=== PATIENT | male | born 1995 | race Caucasian/White ===

== ENCOUNTER 2020-11-10 13:18 | Emergency (ER) | payer MEDICAID, OTHER, SELFPAY ==
[2020-11-10 14:10] VITALS: BP 131/78; PULSE 80; RESP 18; TEMP 37.1; O2SAT 98; BMI 27.4
--- NOTE | 2020-11-10 14:20 | CT_ITS ---
EXAMINATION: CT HEAD WITHOUT CONTRAST CLINICAL INFORMATION: Dizziness, headache. COMPARISON: 05/26/[address] scan. TECHNIQUE: Contiguous axial imaging was performed from the skull base to vertex without intravenous administration of contrast. Coronal and sagittal reformatted images were obtained. This CT examination was performed using dose optimization techniques as appropriate, variously including the following: *Automated exposure control *Adjustment of mA and/or kV according to patient size (this includes techniques or standardized protocols for targeted exams where dose is matched to indication/reason for exam; i.e. extremities or head) *Use of iterative reconstruction technique DLP: 612 mGy-cm FINDINGS: There is no evidence of acute intracranial hemorrhage or territorial infarction. No abnormal mass effect or midline shift is seen. Jones to white matter differentiation is well preserved. No extra-axial fluid collections are identified. The ventricles are normal in size. There is no abnormal attenuation within the brain parenchyma. The osseous structures and soft tissues are normal. The mastoid air cells and visualized portions of the paranasal sinuses are well aerated. CT/CT head/brain wo con IMPRESSION: No acute intracranial pathology.
[2020-11-10] MEDS: Acetaminophen 325 MG TABLET 975 MG PO (14:36)
--- NOTE | 2020-11-10 14:36 | ED_ITS ---
HPI - Head Injury General Chief complaint: Dizziness Stated complaint: work related head inj Time Seen by Provider: 11/10/20 14:07 Source: patient Mode of arrival: ambulatory Limitations: no limitations History of Present Illness HPI Narrative: 25 y/o male presenting with continued headaches and dizziness 9 days after a 30lb box fell onto his head at work. He was evaluated at [facility] on 11/02 - reportedly did not have imaging done and had an unremarkable examination per his report. He was not given a work note and has not been able to return to work since due to dizziness and headaches. He works a s a truck body repairer. He states his Workman's Compensation Claim has been denied. He returns today for re-evaluation of his head injury, a CT scan and a work note. MD Complaint: head injury and head pain Onset (ago): day(s) (9) Mechanism of Injury: other (box fell onto his head) Place: work Loss of Consciousness: yes Location of injury: frontal and parietal Severity: moderate Severity scale (1-10): 8 Quality: aching Radiation: none Other Injuries: none Associated symptoms: vertigo (episodic dizziness) Related Data Previous Rx's Medication Instructions Recorded meclizine 12.5 mg PO TID PRN #10 tab 11/10/20 Allergies Allergy/AdvReac Type Severity Reaction Status Date / Time amoxicillin [Augmentin] Allergy Unknown hives Verified 07/17/18 00:00 clavulanic acid [Augmentin] Allergy Unknown hives Verified 07/17/18 00:00 No Known Allergies Allergy Unverified 07/29/20 19:31 [No Known Allergies*] Review of Systems Review of Systems: Constitutional: No Fever, No Chills Eyes: No Eye Pain, No Swelling, No Redness Cardiovascular: No Chest Pain, No SOB Respiratory: No Cough, No Sputum, No Wheezing, No dyspnea Gastrointestinal: No Nausea, No Vomiting Musculoskeletal: No joint pain, No Myalgias Skin: No Skin Lesions, No rash Neuro: No Weakness, No Numbness, + Dizziness, + Headache Psych: + Anxiety/Panic, + Depression Heme/Lymph: No Bruising PMFSH Past Medical History Attestation statement: The following information was validated with the patient. Medical History HIV antibody positive Surgical History (Updated 11/10/20 @ 14:13 by Christina Pitt RN) History of appendectomy Social History Social History Advance Directives: No Advance Directives Information Provided: Yes Physical Exam Vital Signs: Vital Signs: Last Vital Signs Temp 98.8 F 11/10/20 14:10 Pulse 80 11/10/20 14:10 Resp 18 11/10/20 14:10 BP 131/78 11/10/20 14:10 Pulse Ox 98 11/10/20 14:10 Body Mass Index 27.4 Appearance: Alert. Oriented X3. No acute distress. Eyes: Pupils equal, round and reactive to light. EOMI. ENT: Pharynx normal. Neck: Normal inspection. Neck supple. CVS: Normal heart rate and rhythm. Pulses normal. Respiratory: No respiratory distress. Breath sounds normal. Abdomen: Soft and nontender. +BS x4 Skin: Skin warm and dry. Normal skin color. Normal skin turgor. No rashes. Extremities: No lower extremity edema. Neuro: Oriented X 3. No motor deficit. No sensory deficit. Ambulates with steady gait. Course Course Course Narrative: 25 y/o male presenting with headache and dizziness 9 days after head injury with LOC. Probable concussion. Will get head CT to r/o slow ICH. Reevaluation(s) Reevaluation #1: CT head is negative. His exam is non-focal. He is stable for discharge. Will give Rx for Meclizine for occasional dizziness. Discharge Plan Discharge Clinical Impression: Concussion with loss of consciousness Qualifiers: Encounter type: subsequent encounter Qualified Code(s): S06.0X9D - Concussion with loss of consciousness of unspecified duration, subsequent encounter Patient Disposition: Home, Self-Care Instructions: Concussion (ED) Additional Instructions: Your CT today was normal. Because you are still experiencing headaches and dizziness as a result of your injury on 11/01 it is not recommended you work until symptoms are improved. Take Tylenol and/or Motrin as needed for headaches. Continue to limit screen time and allow your brain to rest. Follow up with your doctor this week. Follow up with Neurology if symptoms persist. Prescriptions: New meclizine 12.5 mg tablet 12.5 mg PO TID PRN (Reason: dizziness) Qty: 10 RF: 0 Referrals: Yolanda Pena MD [Physician] - 2 days (concussion ) Stand Alone Forms: Work/School Release
== END 2020-11-10 18:01 | disposition home or self-care (01) ==
PROVIDERS: Emergency Provider Emergency Medicine Emergency Medical Services
DX: S06.0X9A Concussion with loss of consciousness of unspecified duration, initial encounter (principal); W20.8XXA Other cause of strike by thrown, projected or falling object, initial encounter; R42 Dizziness and giddiness; R51.9 Headache, unspecified; Y93.89 Activity, other specified; Y92.812 Truck as the place of occurrence of the external cause; Y99.0 Civilian activity done for income or pay
CPT/HCPCS: 70450; 99284

== ENCOUNTER 2023-06-29 16:22 | Emergency (ER) | payer OTHER, SELFPAY ==
--- NOTE | ~2023-06-29 | CT_ITS ---
EXAMINATION: CT head for stroke CLINICAL INFORMATION: Reason for Exam acute speech changes COMPARISON: None. TECHNIQUE: Contiguous axial imaging was performed from the skull base to vertex without intravenous contrast. Sagittal and coronal reformatted images were obtained. This CT examination was performed using dose optimization techniques as appropriate, variously including the following: * Automated exposure control * Adjustment of mA and/or kV according to patient size (this includes techniques or standardized protocols for targeted exams where dose is matched to indication/reason for exam; i.e. extremities or head) Use of iterative reconstruction technique DLP: 581.63 mGy-cm FINDINGS: The ventricles and sulci are normal in size and configuration without significant volume loss or hydrocephalus. There is no abnormal attenuation within the brain parenchyma. No territorial loss of rios-white differentiation. Soft tissue fullness within the posterior pituitary gland. No acute intracranial hemorrhage or extra-axial fluid collection. No mass lesion, significant mass effect, or herniation pattern. The orbits are grossly normal. Paranasal sinuses and mastoid air cells are well aerated. Osseous structures are intact. CT/CT head for stroke IMPRESSION: 1. No acute intracranial abnormality. Specifically, no CT evidence of acute intracranial hemorrhage, significant mass effect, hydrocephalus, or large territorial infarction. 2. Soft tissue fullness within the posterior pituitary gland may reflect pituitary hyperplasia however underlying lesion is not excluded on the basis of this examination and can be further diagnostically assessed with contrast-enhanced MRI sella protocol. This critical result was discussed with at 5:03 PM on 06/29/2023 and it was ascertained that the content and urgency of the report was understood at the time of direct communication.
--- NOTE | ~2023-06-29 | CT_ITS ---
EXAMINATION: CT ANGIOGRAM HEAD CT ANGIOGRAM NECK CLINICAL INFORMATION: Reason for Exam acute speech changes COMPARISON: Same day head CT TECHNIQUE: Test bolus sequences followed by intravenous administration 70 mL of Omnipaque 350. Helical imaging was performed in the axial plane from the aortic arch to the skull vertex. Delayed postcontrast imaging of the head was also performed. The data was processed at the anesthesiology technologist's workstation for generation of MIP sequences. Angled MIPs and volume rendered reformatted images were also generated at an offline 3D workstation. Stenoses are assessed in accordance with Zabala et al. Quantification of Carotid Stenosis on CT Angiography. AJR 2006. 27(1):13-19. This CT examination was performed using dose optimization techniques as appropriate, variously including the following: *Automated exposure control *Adjustment of mA and/or kV according to patient size (this includes techniques or standardized protocols for targeted exams where dose is matched to indication/reason for exam; i.e. extremities or head) *Use of iterative reconstruction technique DLP: 1364 mGy-cm FINDINGS: CT HEAD: Noncontrast head CT findings discussed separately. No pathologic intra-axial enhancement or regional oligemia. CTA HEAD: Arteriovenous timing of contrast bolus limits diagnostic assessment of the distal intracranial arterial vasculature. No hemodynamically significant stenosis or occlusion in the anterior or posterior circulation. Nondominant intradural right vertebral artery largely terminates in PICA, a normal anatomic. No aneurysms and no high flow vascular malformations. Timing of the contrast bolus allows assessment of the major dural venous sinuses, which all opacify normally CTA NECK: Classic 3 vessel branching pattern of the aortic arch. Origins of the great vessels are widely patent. The common carotid arteries are widely patent. The carotid bifurcations and bilateral internal carotid arteries are normal. The left vertebral artery is dominant. The vertebral artery ostia are widely patent. Both vertebral arteries are widely patent throughout their extracranial cervical course. CT NECK: Calcified left palatine tonsilloliths. Adenoidal tonsillar hyperplasia with several calcified tonsilloliths. The visualized lung apices and upper mediastinum are within normal limits. CT/CT angio head neck stroke IMPRESSION: Arteriovenous timing of contrast bolus limits diagnostic assessment of the distal intracranial arterial vasculature. Within these limitations, no acute arterial occlusion or hemodynamically significant stenosis within the head or neck. This critical result was discussed with Dr. Grullon at 5:22 PM on 06/29/2023 and it was ascertained that the content and urgency of the report was understood at the time of direct communication.
[2023-06-29 16:29] VITALS: BP 144/94; PULSE 86; RESP 18; TEMP 36.7; O2SAT 98; BMI 31.5
--- NOTE | 2023-06-29 16:33 | ECG_ITS ---
Test Reason : SPEECH CHANGES Blood Pressure : / mmHG Vent. Rate : 077 BPM Atrial Rate : 077 BPM P-R Int : 184 ms QRS Dur : 070 ms QT Int : 366 ms P-R-T Axes : 018 013 016 degrees QTc Int : 414 ms Normal sinus rhythm Normal ECG No previous ECGs available Referred By: Archie Grullon Electronically Signed By:LUDY CATALAN
[2023-06-29 16:39] VITALS: BP 138/83; PULSE 106; RESP 18; TEMP 36.7; O2SAT 96
--- NOTE | 2023-06-29 16:41 | PC.NURSE ---
Patient arrived from urgent care via ems. Patient states that this morning he was at work and had a tickle iin his throat, coughed and he felt like he was going to pass out. Became light headed and dizzy with blurred vision. Last about 5 seonds. Still felt pressure in head that has mostly resolved at this time. States around 2;30 started to stutter. Denies sob, chest pain dizziness, or lightheadedness. PERRLA. hand grasps strong and equal, ambulates steady. Reports has felt more anxious at work lately and thinks it could be a panic attack
--- NOTE | 2023-06-29 16:44 | ED_ITS ---
HPI - Neuro Symptoms/Deficit General Chief Complaint: Stroke Stated Complaint: LIGHT HEADED STUTTERING Time Seen by Provider: 06/29/23 16:32 Source: patient and EMS Mode of arrival: EMS Limitations: no limitations History of Present Illness HPI Narrative: 28-year-old male with HIV, well controlled, presents with change in speech. Patient woke this morning around 9:00 a.m. he coughs or sneeze developed some brief vision changes and some lightheadedness. Since then, patient has been having stuttering voice. Denies any numbness, tingling, weakness. There is no clear relieving or exacerbating features. The patient's symptoms are constant. He denies any drugs or alcohol. Went to an urgent care center or 911 was contacted. He was found to be mildly hypertensive but otherwise no acute distress. He had no focal deficits but did have significant speech issues. Point of care was 118. Patient denies any chest pain, palpitations, nausea, vomiting. Never had anything like this happen before. This is new in onset. Related Data Previous Rx's Medication Instructions Recorded meclizine 12.5 mg tablet 12.5 mg PO TID PRN dizziness #10 11/10/20 tabs Allergies Allergy/AdvReac Type Severity Reaction Status Date / Time amoxicillin [Augmentin] Allergy Unknown hives Verified 07/17/18 00:00 clavulanic acid [Augmentin] Allergy Unknown hives Verified 07/17/18 00:00 No Known Allergies Allergy Unverified 07/29/20 19:31 [No Known Allergies*] Review of Systems Review of Systems: CONSTITUTIONAL: Denies weight loss, fever and chills. HEENT: Denies changes in vision and hearing. RESPIRATORY: Denies SOB + cough. CV: Denies palpitations no CP. GI: Denies abdominal pain, nausea, vomiting and diarrhea. : Denies dysuria and urinary frequency. MSK: Denies myalgia and joint pain. SKIN: Denies rash and pruritus. NEUROLOGICAL: Denies headache and syncope. PSYCHIATRIC: Denies recent changes in mood. Denies anxiety and depression. All other ROS are negative unless in HPI PMFSH Past Medical History Medical History HIV antibody positive Surgical History History of appendectomy Social History Social History Alcohol intake: current Alcohol intake frequency: holidays/special occasions only Smoked in Last 30 Days: No Use of substances other than those prescribed or required for medical reasons: No Advance Directives: No Advance Directives Information Provided: No Physical Exam Vital Signs: Vital Signs: Last Vital Signs Temp 98.1 F 06/29/23 16:39 Pulse 75 06/29/23 18:50 Resp 16 06/29/23 18:50 BP 117/75 06/29/23 18:50 Pulse Ox 98 06/29/23 18:50 O2 Del Method Room Air 06/29/23 18:50 BMI result Body Mass Index 31.5 GEN: Well developed, no acute distress, alert, oriented HEENT: Normocephalic, atraumatic, normal external ears, nose appears normal, no oropharyngeal edema or exudates Eyes: Normal to appearance Neck: Supple, no lymphadenopathy Respiratory: Talks in complete sentences, no respiratory distress, clear to auscultation bilaterally Cardiovascular: Regular rate and rhythm, no murmurs rubs or gallops Abdomen: Soft, nontender, nondistended, no guarding, no rebound Back: No CVA tenderness Extremities: No clubbing cyanosis or edema Neurologic: No focal neurologic deficits, cranial nerves 2-12 intact, strength is 5/5 bilaterally, visual smith intact, normal rapid alternating movements, no pronator drift Skin: No rash Course Reevaluation(s) Reevaluation #1: Patient's speech is return to normal. Will monitor patient for 1-2 additional hours. Patient does report having increased stress in the when he spoke to his father about his symptoms, he had more stressed more stuttering. Time: 17:40 Reevaluation #2: it has been three hours, doing well will d/c to f/u with neuro Time: 19:16 Medications Administered Discontinued Medications Generic Name Dose Route Start Last Admin Trade Name Freq PRN Reason Stop Dose Admin Iohexol 100 ml 06/29/23 17:10 06/29/23 17:11 Iohexol 350 Mg/Ml 100 Ml Infus..Btl IV 06/29/23 17:11 70 ml ONCE ONE Administration Medical Decision Making Medical Decision Making MDM Narrative: 28-year-old male presents with acute stuttering speech. Has no focal deficits otherwise on physical exam. Visual smith are intact. Differential diagnosis could include stroke, electrolyte abnormality, and anxiety, stress. I will activated stroke alert although patient's symptoms started around 9:00 a.m.. He is certainly out of the window for tPA. However, should he have a large vessel occlusion, could consider clot retrieval. Will let patient's blood pressure on a regular late. Patient will likely need to be admitted. Differential Diagnosis Differential Diagnoses: The differential diagnosis associated with the presentation includes (See above) Admission/Observation Consideration of admission/observation: Escalation of care including admission/observation considered Lab Data MDM Lab Attestation statement: I reviewed the patient's lab results. 06/29/23 16:47 06/29/23 16:46 Labs: Lab Results 06/29/23 06/29/23 06/29/23 Range/Units 16:38 16:46 16:46 WBC (4.8-10.8) X10*3/uL RBC (4.60-5.80) X10*6/uL Hgb (14.0-18.0) g/dl Hct (42.0-52.0) % MCV (80.0-98.0) fL MCH (27.0-33.0) pg MCHC (31.0-36.0) g/dl RDW (11.0-16.0) % Plt Count (160-400) X10*3/uL MPV (9.4-12.4) fL Immature Gran % (Auto) (0.0-0.4) % Neut % (Auto) (45-73) % Lymph % (Auto) (20-40) % [place] % (Auto) (2-11) % Eos % (Auto) (0-4) % Baso % (Auto) (0-2) % Lymph # (Auto) (1.2-4.9) X10*3/uL [place] # (Auto) (0.1-1.2) X10*3/uL Eos # (Auto) (0.0-0.4) X10*3/uL Baso # (Auto) (0.0-0.2) X10*3/uL Abs Immat Gran (auto) (0.00-0.03) X10*3/uL Absolute Neuts (auto) (2.0-8.3) x10*3/uL Absolute Nucleated RBC (0.0-0.012) X10*3/uL Nucleated RBC % (auto) (0.0-0.2) /100WBC PT (11.1-13.3) SEC INR (0.9-1.1) APTT (26.0-36.4) SEC Sodium 140 (135-145) mmol/L Potassium 3.9 (3.3-5.1) mmol/L Chloride 106 (96-108) mmol/L Carbon Dioxide 26 (22-29) mmol/L Anion Gap 12 (12-20) BUN 17 H (9-16) mg/dL Creatinine 1.24 (0.5-1.4) mg/dL Estim Creat Clear Calc 87.0 Estimated GFR > 60 POC Glucose 87 (60-115) mg/dL Random Glucose 93 (60-115) mg/dL Calcium 10.1 (8.4-10.2) mg/dL Phosphorus 3.0 (2.7-4.5) mg/dL Magnesium 1.9 (1.6-2.6) mg/dL Total Creatine Kinase 339 H (38-174) U/L Troponin I High Sens < 2.7 (<3.5-35.0) ng/L TSH 0.67 (0.32-4.0) uIU/mL Urine Color Urine Appearance Urine pH (5.0-9.0) Ur Specific [place] (1.005-1.025) Urine Protein (Neg-Trace) mg/dL Urine Glucose (UA) (Negative) mg/dL Urine Ketones (Negative) mg/dL Urine Blood (Negative) Urine Nitrite (Negative) Ur Leukocyte Esterase (Negative) Ethyl Alcohol < 10 mg/dL 06/29/23 06/29/23 06/29/23 Range/Units 16:47 16:47 18:51 WBC 8.2 (4.8-10.8) X10*3/uL RBC 5.62 (4.60-5.80) X10*6/uL Hgb 15.7 (14.0-18.0) g/dl Hct 46.7 (42.0-52.0) % MCV 83.1 (80.0-98.0) fL MCH 27.9 (27.0-33.0) pg MCHC 33.6 (31.0-36.0) g/dl RDW 13.4 (11.0-16.0) % Plt Count 299 (160-400) X10*3/uL MPV 8.8 L (9.4-12.4) fL Immature Gran % (Auto) 0.6 H (0.0-0.4) % Neut % (Auto) 61.0 (45-73) % Lymph % (Auto) 28.4 (20-40) % [place] % (Auto) 8.0 (2-11) % Eos % (Auto) 1.6 (0-4) % Baso % (Auto) 0.4 (0-2) % Lymph # (Auto) 2.3 (1.2-4.9) X10*3/uL [place] # (Auto) 0.7 (0.1-1.2) X10*3/uL Eos # (Auto) 0.1 (0.0-0.4) X10*3/uL Baso # (Auto) 0.0 (0.0-0.2) X10*3/uL Abs Immat Gran (auto) 0.05 H (0.00-0.03) X10*3/uL Absolute Neuts (auto) 5.0 (2.0-8.3) x10*3/uL Absolute Nucleated RBC 0.000 (0.0-0.012) X10*3/uL Nucleated RBC % (auto) 0.0 (0.0-0.2) /100WBC PT 12.1 (11.1-13.3) SEC INR 1.0 (0.9-1.1) APTT 32.8 (26.0-36.4) SEC Sodium (135-145) mmol/L Potassium (3.3-5.1) mmol/L Chloride (96-108) mmol/L Carbon Dioxide (22-29) mmol/L Anion Gap (12-20) BUN (9-16) mg/dL Creatinine (0.5-1.4) mg/dL Estim Creat Clear Calc Estimated GFR POC Glucose (60-115) mg/dL Random Glucose (60-115) mg/dL Calcium (8.4-10.2) mg/dL Phosphorus (2.7-4.5) mg/dL Magnesium (1.6-2.6) mg/dL Total Creatine Kinase (38-174) U/L Troponin I High Sens (<3.5-35.0) ng/L TSH (0.32-4.0) uIU/mL Urine Color Yellow Urine Appearance Clear Urine pH 6.0 (5.0-9.0) Ur Specific [place] >= 1.030 H (1.005-1.025) Urine Protein Negative (Neg-Trace) mg/dL Urine Glucose (UA) Negative (Negative) mg/dL Urine Ketones Negative (Negative) mg/dL Urine Blood Negative (Negative) Urine Nitrite Negative (Negative) Ur Leukocyte Esterase Negative (Negative) Ethyl Alcohol mg/dL Independent Interpretation I performed an independent interpretation of an: EKG (Normal sinus rhythm heart rate 77, no acute ST elevations depressions, normal intervals, no comparison) and CT Scan (Noncontrast head: No acute findings) Radiology Impression Discussion of test interpretation with radiology: I have reviewed the radiologist's reading. Radiologist Impression: CT/CT head for stroke IMPRESSION: ? 1.? No acute intracranial abnormality. Specifically, no CT evidence of acute intracranial hemorrhage, significant mass effect, hydrocephalus, or large territorial infarction. 2.? Soft tissue fullness within the posterior pituitary gland may reflect pituitary hyperplasia however underlying lesion is not excluded on the basis of this examination and can be further diagnostically assessed with contrast-enhanced MRI sella protocol. ? This critical result was discussed with at 5:03 PM on 06/29/2023 and it was ascertained that the content and urgency of the report was understood at the time of direct communication. Dictated By: Kimber Driver Signed By: <Electronically signed by Antonio Driver in [place]> 06/29/[address]/CT angio head? neck stroke IMPRESSION: ? Arteriovenous timing of contrast bolus limits diagnostic assessment of the distal intracranial arterial vasculature. Within these limitations, no acute arterial occlusion or hemodynamically significant stenosis within the head or neck. This critical result was discussed with Dr. Grullon at 5:22 PM on 06/29/2023 and it was ascertained that the content and urgency of the report was understood at the time of direct communication. ? ? Dictated By: Kimber Driver Signed By: <Electronically signed by Antonio Driver in [place]> 06/29/23 4597 Independent Historian Clinical information obtained from an independent historian. History obtained from or confirmed by: EMS Chronic Conditions Patient?s care impacted by: Other (HIV) Discharge Plan Discharge Clinical Impression: Speech abnormality Patient Disposition: Home, Self-Care Instructions: Aphasia (DC) Prescriptions: No Action meclizine 12.5 mg tablet 12.5 mg PO TID PRN (Reason: dizziness) Qty: 10 0RF Referrals: Analisa Yang MD [Physician] - 1 week
[2023-06-29 16:52] LABS: Glucose, Whole Blood 87 mg/dL (60-115)
[2023-06-29 16:53] LABS: MANUAL DIFF FLAG NO
[2023-06-29 16:58] LABS: Basophils Percent Auto 0.4 % (0-2); Eosinophils Absolute Auto 0.1 X10*3/uL (0.0-0.4); Eosinophils Percent Auto 1.6 % (0-4); Hematocrit 46.7 % (42.0-52.0); Hemoglobin 15.7 g/dl (14.0-18.0); Imm Gran Abs Auto 0.05 X10*3/uL (0.00-0.03); Imm Gran Pct Auto 0.6 % (0.0-0.4); Lymphocytes Absolute Auto 2.3 X10*3/uL (1.2-4.9); Lymphocytes Percent Auto 28.4 % (20-40); Mean Corpuscular HGB Conc 33.6 g/dl (31.0-36.0); Mean Corpuscular Hemoglobin 27.9 pg (27.0-33.0); Mean Corpuscular Volume 83.1 fL (80.0-98.0); Mean Platelet Volume 8.8 fL (9.4-12.4); Monocytes Absolute Auto 0.7 X10*3/uL (0.1-1.2); Platelet Count 299 X10*3/uL (160-400); Red Blood Count 5.62 X10*6/uL (4.60-5.80); Red Cell Distribution Width 13.4 % (11.0-16.0); White Blood Count 8.2 X10*3/uL (4.8-10.8)
[2023-06-29 17:06] LABS: Prothrombin Time 12.1 SEC (11.1-13.3)
[2023-06-29 17:09] LABS: Partial Thromboplastin Time 32.8 SEC (26.0-36.4)
[2023-06-29] MEDS: iohexoL 350 MG/ML 100 ML INFUS..BTL IV (17:11)
[2023-06-29 17:18] LABS: Anion Gap 12 (12-20); Blood Urea Nitrogen 17 mg/dL (9-16); Calcium 10.1 mg/dL (8.4-10.2); Carbon Dioxide 26 mmol/L (22-29); Chloride 106 mmol/L (96-108); Estimated Glomerular Filt Rate > 60; Ethanol < 10 mg/dL; Glucose Random 93 mg/dL (60-115); Magnesium 1.9 mg/dL (1.6-2.6); Potassium 3.9 mmol/L (3.3-5.1); Sodium 140 mmol/L (135-145)
[2023-06-29 17:23] LABS: Troponin-I High Sensitivity < 2.7 ng/L (<3.5-35.0)
[2023-06-29 17:35] LABS: Thyroid Stimulating Hormone 0.67 uIU/mL (0.32-4.0)
[2023-06-29 18:50] VITALS: BP 117/75; PULSE 75; RESP 16; O2SAT 98
[2023-06-29 19:02] LABS: Appearance Urine Clear; Color Urine Yellow; Glucose Urine UA Negative (Negative); Leukocyte Esterase Urine Negative (Negative); Nitrite Urine Negative (Negative); Specific Gravity - Urine >= 1.030 (1.005-1.025); Urine Blood Negative (Negative); Urine Ketones Negative (Negative); Urine Protein Negative (Neg-Trace)
--- NOTE | 2023-06-29 19:53 | PC.NURSE ---
pt assessed at d/c, denies any complaints, speech clear
[2023-06-29 20:53] LABS: Stroke Lab Use COMPLETE
== END 2023-06-29 19:54 | disposition home or self-care (01) ==
PROVIDERS: Emergency Provider Emergency Medicine; PCP Student in an Organized Health Care Education/Training Program
DX: R47.89 Other speech disturbances (principal)
CPT/HCPCS: 36415; 70450; 70496; 70498; 80048; 80307; 81003; 82550; 82947; 83735; 84100; 84443; 84484; 85025; 85610; 85730; 93005; 99284; Q9967

== ENCOUNTER 2024-10-23 18:32 | Emergency (ER) | payer OTHER, SELFPAY ==
--- NOTE | ~2024-10-23 | XR_ITS ---
EXAMINATION: XR CHEST CLINICAL INFORMATION: cough COMPARISON: None available. TECHNIQUE: 2 views of the chest were obtained. FINDINGS: No significant abnormality is noted involving the heart, lungs, mediastinum, bony thorax or soft tissues. XR/XR chest 2V IMPRESSION: Unremarkable examination. Electronically signed by: Maximilian Souza DO 10/23/2024 09:53 PM [facility]
[2024-10-23 19:35] VITALS: BP 111/73; PULSE 86; RESP 20; TEMP 37.1; O2SAT 99; BMI 28.0
--- NOTE | 2024-10-23 19:40 | ED.GENADULT ---
HPI - General Adult General Chief complaint: Upper Respiratory Symptoms Stated complaint: Covid+ sob, dizziness, weak Time Seen by Provider: 10/23/24 19:49 Source: patient Mode of arrival: ambulatory Limitations: no limitations History of Present Illness ED Provider: Damien Morel PA-C HPI narrative: 29-year-old male history of HIV on Desai medication and states CD4 count is above 500 presents to ED for coughing, patient, and shortness of breath. Patient tested positive for COVID on Sunday states has had symptoms ever since. Patient denies any pleurisy, coughing up blood, leg swelling, calf pain, recent long travel, recent surgeries, or any estrogen use. Related Data Previous Rx's ?Medication ?Instructions ?Recorded meclizine 12.5 mg tablet 12.5 mg PO TID PRN dizziness #10 11/10/20 tabs Allergies Allergy/AdvReac Type Severity Reaction Status Date / Time amoxicillin [Augmentin] Allergy Unknown hives Verified 10/23/24 19:36 clavulanic acid [Augmentin] Allergy Unknown hives Verified 10/23/24 19:36 No Known Allergies Allergy Unverified 10/23/24 19:36 [No Known Allergies*] Review of Systems Review of Systems: Coughing, fatigue, weakness, Yes all other systems are reviewed and are negative PMFSH Past Medical History Medical History HIV antibody positive Surgical History History of appendectomy Social History Social History Alcohol intake: current Alcohol intake frequency: holidays/special occasions only Advance Directives: No Advance Directives Information Provided: Yes Physical Exam ED Vital Signs: Vital Signs - 24 hr 10/23/24 19:35 10/23/24 22:30 Temperature 98.7 F 98.7 F Pulse Rate 86 86 Respiratory Rate 20 20 Blood Pressure 111/73 111/73 Pulse Oximetry 99 99 Oxygen Delivery Method Room Air Room Air BMI result Body Mass Index 28.0 Const General: cooperative, healthy appearing, comfortable, no acute distress, well developed, alert, awake and Physically active Orientation/consciousness: patient oriented x3 HENMT Head: Yes normal to inspection, Yes No palpable skull fracture present, Yes normocephalic and Yes atraumatic Eyes General: appearance normal, both eyes and all related structures Neck Neck: Yes normal visual inspection, Yes full ROM, Yes no lymphadenopathy, Yes no meningeal signs, Yes trachea midline, Yes supple, No anterior neck swelling and No tender Chest Chest palpation & inspection: normal inspection of the chest and normal palpation of entire chest wall Resp Effort & Inspection: normal respiratory effort and able to speak in complete sentences Auscultation: clear to auscultation bilaterally Cardio Jugular venous distension: no JVD Heart sounds: S1 normal heart sound present and S2 normal heart sound present GI Inspection: Yes normal to inspection Palpation (GI): Soft to palpation, not firm, nontender, no guarding and not rigid General: Yes no CVA tenderness Back/Spine/Pelvis Back: no CVA tenderness and No back tenderness Skin General skin exam: no rashes or lesions noted, elasticity normal and turgor normal Neuro General: patient oriented x3, gait normal, tone normal, moves all extremities, Normal light touch and pain sensation, no meningeal signs, no focal motor deficits, CN's II-XI intact bilaterally and normal sensation to monofilament Extrem General: Yes normal to inspection, Yes full ROM and Yes capillary refill normal Psych Appearance: grossly normal, well kempt and not disheveled Course Course Course Narrative: This is a rapid medical exam performed by Scarlett Lai PA-C. Patient is a 29-year-old otherwise healthy male who presents with viral syndrome. Patient tested positive for COVID 4 days ago, he has been using Paxlovid. Patient states he feels short of breath, he is having an active spasm like dry cough. Associated generalized malaise and weakness. Denies nausea vomiting diarrhea. On exam, the patient's lungs are clear to auscultation no wheezing, he is not tachypneic, he does have an active bronchospasm cough. We will be obtaining a chest x-ray. The patient is hemodynamically stable and can return to the waiting room pending his full medical assessment. Medical Decision Making Medical Decision Making MDM Narrative: 29-year-old male history of a HIV with known COVID diagnosis since Sunday presents to ED for coughing and fatigue. Patient's vital signs are stable. Lungs are clear. Patient is not any respiratory distress. Chest x-ray pending. 10:11pm: Chest x-ray negative pneumonia. Patient's vital signs are stable. Patient not in any distress. Patient is safe for discharge. Not suspecting PE, myocarditis, pericarditis, LA, CHF, cardiac tamponade, or respiratory failure. Patient explained worrisome signs and informed to return to the ED immediately. Differential Diagnosis Differential Diagnoses: The differential diagnosis associated with the presentation includes (COVID, influenza, pneumonia) Admission/Observation Consideration of admission/observation: Escalation of care including admission/observation considered Independent Interpretation I performed an independent interpretation of an: Plain X-Ray Radiology Impression Discussion of test interpretation with radiology: I have reviewed the radiologist's reading. Independent Historian Clinical information obtained from an independent historian. History obtained from or confirmed by: Other (Patient) External Record Review External record reviewed: Other (Prior visits) Prescription Management I considered prescription management with: Other Discharge Plan Discharge Clinical Impression: COVID-19 Patient Disposition: Home, Self-Care Instructions: COVID-19 (Coronavirus Disease 2019) (ED) Additional Instructions: Chest x-ray came back normal negative for pneumonia. Recommend follow-up with your primary care provider. Return to the ED immediately for any chest pain, shortness of breath, leg swelling, calf pain, coughing up blood, lethargy, or any other concerning symptoms. Prescriptions: No Action meclizine 12.5 mg tablet 12.5 mg PO TID PRN (Reason: dizziness) Qty: 10 0RF Stand Alone Forms: Work/School Release Interventions: ED Discharge Assessment Last Done: 10/23/24 22:30 Discharge Date/Time: 10/23/24 22:30 Print Language: Bulgarian
[2024-10-23 22:30] VITALS: BP 111/73; PULSE 86; RESP 20; TEMP 37.1; O2SAT 99
== END 2024-10-23 22:30 | disposition home or self-care (01) ==
PROVIDERS: Emergency Provider Emergency Medicine
DX: U07.1 COVID-19 (principal)
CPT/HCPCS: 71046; 99282; 99283

== ENCOUNTER 2025-02-06 18:57 | Emergency (ER) | payer OTHER, SELFPAY ==
[2025-02-06 19:04] VITALS: BP 118/74; PULSE 93; RESP 20; TEMP 36.9; O2SAT 98; BMI 27.7
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
[2025-02-06] MEDS: Ibuprofen 600 MG TABLET PO (22:34)
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
[2025-02-07 01:26] VITALS: BP 124/68; PULSE 80; RESP 16; TEMP 36.9; O2SAT 97
== END 2025-02-07 01:30 | disposition home or self-care (01) ==
PROVIDERS: Emergency Provider Emergency Medicine
DX: Z04.1 Encounter for examination and observation following transport accident (principal); M79.18 Myalgia, other site; M54.2 Cervicalgia; M54.6 Pain in thoracic spine; M54.50 Low back pain, unspecified
CPT/HCPCS: 99283; 99284